=== PATIENT | female | born 1980 | race American Indian/Alaskan Native ===

== ENCOUNTER 2021-01-20 13:47 | Emergency (ER) | payer SELFPAY ==
[2021-01-20 14:32] VITALS: BP 121/79
--- NOTE | 2021-01-20 15:45 | Emergency Department Report ---
ED General Adult HPI - General Chief complaint: Laceration/Recheck/Suture Stated complaint: NECK PAIN Time Seen by Provider: 01/20/21 15:27 Source: patient Mode of arrival: Ambulatory Limitations: No Limitations - History of Present Illness Initial comments: 40-year-old female presents to the ER today complaining of abscess recheck. Patient had an I&D to an abscess to her right lateral neck area done at [facility] about 2 days ago. Patient states that she was informed that she could follow-up at the nearest ER for wound check and packing removal. She was prescribed Bactrim as well as ibuprofen for pain. She was given 2 tablets of oxycodone at the time she was discharged from the hospital but no additional prescriptions. MD Complaint: Abscess recheck - Related Data Previous Rx's Medication Instructions Recorded Last Taken Type Acetaminophen/Codeine [Tylenol 1 tab PO Q6H PRN #10 tab 01/20/21 Unknown Rx /Codeine # 3 tab] Allergies Allergy/AdvReac Type Severity Reaction Status Date / Time aspirin Allergy Swelling Verified 01/20/21 14:33 erythromycin base Allergy Swelling Verified 01/20/21 14:33 Penicillins Allergy Swelling Verified 01/20/21 14:33 ED Review of Systems ROS: Stated complaint: NECK PAIN Other details as noted in HPI Comment: All other systems reviewed and negative Constitutional: denies: chills, fever Skin: other (Abscess to right neck status post I&D) ED Past Medical Hx - Past Medical History Previous Medical History?: Yes Additional medical history: lupus. fibromyalgia - Medications Home Medications: Home Medications Medication Instructions Recorded Confirmed Last Taken Type Acetaminophen/Codeine [Tylenol 1 tab PO Q6H PRN #10 tab 01/20/21 Unknown Rx /Codeine # 3 tab] ED Physical Exam - General Limitations: No Limitations General appearance: alert, in no apparent distress - Head Head exam: Present: atraumatic, normocephalic, normal inspection - Eye Eye exam: Present: normal appearance, PERRL, EOMI Pupils: Present: normal accommodation - Neck Neck exam: Present: normal inspection, full ROM, other (Incised abscess noted to the right upper trapezius area. Packing removed by me. No further pus drainage noted. There is some slight induration around the incision but no fluctuance or significant cellulitis.). Absent: meningismus - Respiratory Respiratory exam: Present: normal lung sounds bilaterally. Absent: respiratory distress, wheezes, rales, rhonchi, stridor - Cardiovascular Cardiovascular Exam: Present: regular rate, normal rhythm, normal heart sounds - Neurological Exam Neurological exam: Present: alert, oriented X3, CN II-XII intact, normal gait - Psychiatric Psychiatric exam: Present: normal affect, normal mood ED Course Vital Signs 01/20/21 14:32 Temperature 98.0 F Pulse Rate 73 Respiratory 16 Rate Blood Pressure 121/79 [Right] O2 Sat by Pulse 99 Oximetry Critical care attestation.: If time is entered above; I have spent that time in minutes in the direct care of this critically ill patient, excluding procedure time. ED Disposition Clinical Impression: Abscess re-check Disposition: HOME / SELF CARE / HOMELESS Is pt being admited?: No Does the pt Need Aspirin: No Condition: Stable Instructions: Wound Care, Adult Additional Instructions: Keep the wound clean daily with soap and water. Dry well after each cleaning. Apply a dressing after each cleaning. The wound should heal completely in about 1 to 2 weeks. Continue taking all of your Bactrim. Take the ibuprofen as prescribed for pain, but you can take the Tylenol threes for any additional pain control. Follow-up as needed with your PCP. Return to the ER if symptoms changes or worsens in any way. Prescriptions: Acetaminophen/Codeine [Tylenol /Codeine # 3 tab] 1 tab PO Q6H PRN #10 tab PRN Reason: Pain , Severe (7-10) Referrals: SID[facility] ACOSTA [Other] - 3-5 Days Time of Disposition: 15:50
== END 2021-01-20 16:06 | disposition home or self-care (01) ==
LOC: ED 13:47
DX: L02.11 Cutaneous abscess of neck (principal)

== ENCOUNTER 2021-02-21 10:58 | Emergency (ER) | payer MEDICAID ==
--- NOTE | 2021-02-21 11:09 | Emergency Department Report ---
HPI - General Chief Complaint: Allergic Reaction ED Past Medical Hx - Past Medical History Previous Medical History?: Yes Additional medical history: lupus. fibromyalgia - Surgical History Past Surgical History?: No - Medications Home Medications: Home Medications Medication Instructions Recorded Confirmed Last Taken Type Acetaminophen/Codeine [Tylenol 1 tab PO Q6H PRN #10 tab 01/20/21 Unknown Rx /Codeine # 3 tab] ED Review of Systems ROS: Stated complaint: ALLERGIC REACTION Other details as noted in HPI Physical Exam - Physical Exam Vital Signs: Vital Signs 02/21/21 11:00 Temperature 98.3 F Pulse Rate 71 Respiratory 16 Rate Blood Pressure 104/50 [Left] O2 Sat by Pulse 100 Oximetry ED Course Vital Signs 02/21/21 11:00 Temperature 98.3 F Pulse Rate 71 Respiratory 16 Rate Blood Pressure 104/50 [Left] O2 Sat by Pulse 100 Oximetry Critical care attestation.: If time is entered above; I have spent that time in minutes in the direct care of this critically ill patient, excluding procedure time. ED Disposition Condition: Stable
[2021-02-21] MEDS ORDERED: SODIUM CHLORIDE 0.9% 1000 ML 1,000 ML IV ONE (11:15)
[2021-02-21] MEDS ORDERED: FAMOTIDINE 20 MG/2 ML INJ IV ONE (11:20)
[2021-02-21] MEDS ORDERED: diphenhydrAMINE 50 MG/ML VIAL IV ONE (11:20)
[2021-02-21] MEDS ORDERED: ALBUTEROL 2.5 MG/3 ML NEBU IH ONE (11:24)
--- NOTE | 2021-02-21 11:25 | Emergency Department Report ---
ED Rash [facility] Chief Complaint: Allergic Reaction Stated Complaint: ALLERGIC REACTION Time Seen by Provider: 02/21/21 11:09 Rash Symptoms: Yes Itching, Yes Facial Swelling, Yes Tongue/Oral Swelling, No Breathing Difficulties, No Choking Sensation, No Wheezing/Dyspnea, No Peeling, No Blistering, No Fever, No Lightheaded, No Malaise, No Myalgias Severity: moderate Other History: 40-year-old -[place] female presents to the emergency room for allergic reaction. Patient states that hives woke her up. Reports her face is swollen rash neck face arms back chest. States only new medicine she took was B12 and a vitamin D. She states she has taken B12 in the past without reaction. She does report a history of multiple food allergies. As well as drug allergies. She denies any shortness of breath but states that her face is swollen and her tongue feels swollen. ED Review of Systems ROS: Stated complaint: ALLERGIC REACTION Other details as noted in HPI ED Past Medical Hx - Past Medical History Previous Medical History?: Yes Additional medical history: lupus. fibromyalgia - Surgical History Past Surgical History?: No - Medications Home Medications: Home Medications Medication Instructions Recorded Confirmed Last Taken Type Acetaminophen/Codeine [Tylenol 1 tab PO Q6H PRN #10 tab 01/20/21 02/21/21 Unknown Rx /Codeine # 3 tab] Cetirizine HCl [Zyrtec 10mg tab] 10 mg PO DAILY #10 tablet 02/21/21 Unknown Rx EPINEPHrine [Epipen 2-Alec] 0.3 mg IJ ONCE PRN #2 auto.injct 02/21/21 Unknown Rx Famotidine [Pepcid] 20 mg PO BID #20 tablet 02/21/21 Unknown Rx predniSONE [Deltasone] 50 mg PO QDAY 5 Days #5 tab 02/21/21 Unknown Rx Rash Exam - Exam General: Vital signs noted. No distress. Alert and acting appropriately. HEENT: Yes Periorbital Edema, Yes Perioral Edema, No Tongue Edema, No Compromised Airway (Patient's speaking in complete sentences), No Drooling Lungs: Yes Good Air Exchange, Yes Ronchi (Crackles at the base of her lungs) Heart: Yes Regular, No Murmur Skin: Yes Urticarial Rash, Yes Erythema Other: Positive: Neurologic Normal, Musculoskeletal Normal ED Course Vital Signs 02/21/21 11:00 Temperature 98.3 F Pulse Rate 71 Respiratory 16 Rate Blood Pressure 104/50 [Left] O2 Sat by Pulse 100 Oximetry - Reevaluation(s) Reevaluation #1: 02/21/21 14:10 Patient reports she feels much better. Rashes improve. Breathing is nonlabored. Lip swelling has decreased. Patient is able to speak in complete sentences. ED Medical Decision Making - Medical Decision Making 40-year-old -[place] female presents to the emergency room for allergic reaction. Patient states that hives woke her up. Reports her face is swollen rash neck face arms back chest. States only new medicine she took was B12 and a vitamin D. She states she has taken B12 in the past without reaction. She does report a history of multiple food allergies. As well as drug allergies. She denies any shortness of breath but states that her face is swollen and her tongue feels swollen. INT, IV Benadryl IV dexamethasone 10 mg, IV Pepcid 20 mg albuterol 2.5 mg inhalation. Critical care attestation.: If time is entered above; I have spent that time in minutes in the direct care of this critically ill patient, excluding procedure time. ED Disposition Clinical Impression: Allergic reaction, Urticaria Disposition: HOME / SELF CARE / HOMELESS Is pt being admited?: No Does the pt Need Aspirin: No Condition: Stable Instructions: Hives, [id number], Allergies, Adult, [id number], How to Use an Auto-Injector Pen Additional Instructions: Please take medications as prescribed. Use EpiPen if you have another severe allergic reaction. Be sure to increase your water intake advance your diet as tolerated. Please avoid vitamin D and B12 and follow-up with your junior manufacturing engineer. Return back to the emergency room if any severe reactions difficulty breathing or swallowing. Prescriptions: predniSONE [Deltasone] 50 mg PO QDAY 5 Days #5 tab EPINEPHrine [Epipen 2-Alec] 0.3 mg IJ ONCE PRN #2 auto.injct PRN Reason: Anaphylaxis Famotidine [Pepcid] 20 mg PO BID #20 tablet Cetirizine HCl [Zyrtec 10mg tab] 10 mg PO DAILY #10 tablet Referrals: PRIMARY CARE, [Primary Care Provider] - 3-5 Days [facility] [Provider Group] - 3-5 Days Forms: Work/School Release Form(ED) Time of Disposition: 14:14
[2021-02-21 14:33] VITALS: BP 122/65
== END 2021-02-21 14:32 | disposition home or self-care (01) ==
LOC: ED 10:58
DX: T78.40XA Allergy, unspecified, initial encounter (principal); L50.9 Urticaria, unspecified; M79.7 Fibromyalgia; Z79.899 Other long term (current) drug therapy; X58.XXXA Exposure to other specified factors, initial encounter
CPT/HCPCS: 94640; 96361; 96374; 96375; 99283; J1200; J3490; J7030; Q0162